=== PATIENT | female | born 1990 | race Caucasian/White ===

== ENCOUNTER 2022-04-06 20:02 | Emergency (ER) | payer OTHER ==
[2022-04-06 20:51] LABS: HEMOGLOBIN 13.8 gm/dl (12.3-15.3); RED BLOOD COUNT 4.21 M/UL (4.00-5.10); WHITE BLOOD COUNT 5.5 K/UL (4.5-11.0)
[2022-04-06 21:18] LABS: BUN/CREATININE RATIO 21 (0-10)
== END 2022-04-07 03:45 | disposition home or self-care (01) ==
LOC: ER1 20:02
PROVIDERS: Preventive Medicine Occupational Medicine
DX: R07.0 Pain in throat (principal); R50.9 Fever, unspecified; E87.6 Hypokalemia; Z20.822 Contact with and (suspected) exposure to COVID-19; E78.5 Hyperlipidemia, unspecified; K21.9 Gastro-esophageal reflux disease without esophagitis; F17.210 Nicotine dependence, cigarettes, uncomplicated; Z88.0 Allergy status to penicillin
CPT/HCPCS: 0240U; 70491; 71045; 80053; 82550; 82553; 83605; 84484; 85025; 86403; 87040; 87081; 87880; 93005; 96374; 99284; J1885; Q9967